=== PATIENT | female | born 1965 | race Caucasian/White ===

== ENCOUNTER 2017-03-15 08:00 | Inpatient (IN) | payer BC ==
--- NOTE | ~2017-03-15 | HP ---
Unit #: [id number] #: [id number] Patient: KELLI JONES [id number] [place] [address] [id number] MR#: [id number] NAME: KELLI JONES. ROOM: [facility] Age: 51 Sex: F Admission Date: 03/15/2017 : 1965 Attending Physician: Ramakrishna Merida M.D. Admitting Physician: Ramakrishna Meirda M.D. Primary Care Physician: Generic Doctor Not In System HISTORY AND PHYSICAL HISTORY OF PRESENT ILLNESS The patient is a 51-year-old female admitted to [facility] on 03/15/2017 for cocaine abuse and suicidal ideations. PAST MEDICAL HISTORY 1. Hypertension. 2. Hypothyroidism. 3. Type II diabetes. 4. Cocaine abuse. 5. Nicotine dependence. PAST SURGICAL HISTORY Hysterectomy. 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 She smokes one pack of cigarettes daily and uses two to three grams of cocaine per day. FAMILY MEDICAL HISTORY Noncontributory. ALLERGIES Sulfa. CURRENT MEDICATIONS 1. BuSpar 2. Klonopin 3. Tramadol 4. Paxil 5. Gabapentin 6. Klor-Con 7. Maxzide 8. Levothyroxine 9. Metformin 10. Pravastatin 11. Pro-Air REVIEW OF SYSTEMS CONSTITUTIONAL: No fever or chills. HEENT: Denies any sore throat, ear pain or runny nose. CARDIOVASCULAR: Denies chest pain, irregular heart rhythm or palpitations. CHEST: Denies shortness of breath or cough. No hemoptysis. GASTROINTESTINAL: Denies nausea, vomiting, diarrhea or chronic Unit #: [id number] #: [id number] Patient: KELLI JONES constipation. ENDOCRINE: Denies history of increased thirst or urination. No recent significant weight loss or gain. GENITOURINARY: Denies dysuria, frequency, or hematuria. SKIN: Denies any rashes. HEMATOLOGIC: Denies history of increased bleeding or bruising. MUSCULOSKELETAL: Denies any hot, swollen joints. No generalized muscle pain. NEUROLOGIC: Denies problems with vision or speech. No frequent, severe headaches. No numbness, tingling or weakness in any extremities. Denies loss of bladder or bowel control. PHYSICAL EXAM GENERAL: She is awake, alert and oriented in no acute distress. VITAL SIGNS: Temperature 97.7, heart rate 92, respiration 18, blood pressure 116/68. HEIGHT: 5'6". WEIGHT: 130 pounds. SKIN: Warm and dry without rash or lesion. HEENT: Normocephalic. TMs not viewed. Oral and nasal passages clear. Conjunctivae clear. PERRLA. EOMs intact. NECK: Supple without lymphadenopathy or thyromegaly. HEART: Regular rate and rhythm without murmur. LUNGS: Clear. ABDOMEN: Soft, nontender. : Not done. EXTREMITIES: No evidence of cyanosis, clubbing or edema. Moves all without focal deficit. NEUROLOGICAL: Grossly within normal limits. Cranial Nerves: II: Visual reyes are intact. III, IV AND : Extraocular movements are intact. Pupils are equal, round and reactive to light. V: Facial sensation is grossly normal. VII: Facial movements and expression are normal. VIII: Auditory acuity grossly intact. IX, X: Uvula is midline. Phonation is normal. XI: Patient shrugs shoulders and turns head normally. XII: Tongue protrudes in the midline. Sensory and Motor Function: Sensory and motor sensation is grossly normal. Motor: moves all extremities well. IMPRESSION 1. Psychiatric admission. 2. Cocaine abuse. 3. Hypertension. 4. Hypothyroidism. 5. Diabetes. 6. Nicotine dependence. RECOMMENDATIONS Psychiatric per psychiatrist. MEDICAL: No contraindication to participate in facility activities. MEDICAL PROGNOSIS Fair. MEDICAL CONDITION Stable. Unit #: [id number] #: [id number] Patient: KELLI JONES Dictated by... Sarthak Alan/naresh TD: 03/18/2017 03:51 JOB #: [id number] HISTORY AND PHYSICAL Page 1 of 1 X CHERYL MARTINEZ APRN HISTORY AND PHYSICAL
--- NOTE | ~2017-03-15 | DS ---
Unit #: [id number] #: [id number] Patient: KELLI JONES [id number] [facility] [address] [place] [address] [id number] MR#: [id number] NAME: KELLI JONES. ROOM: 75 Age: 51 Sex: F Admission Date: 03/15/2017 : 1965 Discharge Date: 03/18/2017 Attending Physician: Ramakrishna Merida M.D. Primary Care Physician: Generic Doctor Not In System DISCHARGE SUMMARY REASON FOR ADMISSION The patient is a 51-year-old, , white female, admitted with recurrence of depressed mood and cocaine use. HOSPITAL COURSE The patient was admitted to the [facility] unit and placed on suicide precautions. She was restarted on Paxil 20 mg daily and trazodone 100 mg at h.s. was added as well as BuSpar 10 mg b.i.d. The patient participated actively within therapeutic milieu and was much brighter when seen by this physician on 03/17/2017. On 03/18/2017, she sustained progress and requested discharge, and it was so ordered. FINAL DIAGNOSES Cocaine use disorder; dysthymic disorder; hypertension; diabetes mellitus; dyslipidemia; hypothyroidism; chronic obstructive pulmonary disease; chronic pain. DISPOSITION ON DISCHARGE The patient discharged on the following medications: Klor-Con 20 mEq q.a.m. for hypokalemia, Maxzide 25 mg one tablet once daily for hypertension, Synthroid 0.112 mg daily for hypothyroidism, Glucophage XR b.i.d. before meals for diabetic management, Lipitor 10 mg at bedtime for dyslipidemia, Proventil HFA 2 puffs q.4 hours p.r.n. shortness of air, BuSpar 10 mg b.i.d. for anxiety, Ultram dose unknown 1 to 2 tablets t.i.d. p.r.n. pain, Desyrel 100 mg at h.s. p.r.n. insomnia, and Paxil 20 mg daily for depression. DISCHARGE INSTRUCTIONS No dietary or physical restrictions were placed upon the patient at the time of discharge. FOLLOWUP Follow up through the auspices of community mental health resources in the [place], [place] area. PROGNOSIS The patient's prognosis is considered fair. Dictated by... Ramakrishna Merida M.D. Unit #: [id number] #: [id number] Patient: KELLI JONES Leelee STRANGE/laurent TD: 03/18/2017 15:52 JOB #: [id number] DISCHARGE SUMMARY Page 1 of 1 X Ramakrishna Merida MD X DISCHARGE SUMMARY
--- NOTE | ~2017-03-15 | PN ---
Unit #: [id number] #: [id number] Patient: KELLI JONES [id number] [facility] [address] [place] [address] [id number] I MR#: [id number] NAME: KELLI JONES. ROOM: [facility] Age: 51 Sex: F Admission Date: 03/15/2017 : 1965 Attending Physician: Ramakrishna Merida M.D. Admitting Physician: Ramakrishna Merida M.D. Primary Care Physician: Surya Doctor Not In System [facility] PROGRESS NOTES DATE 03/17/2017 DISCUSSION The patient appears significantly brighter today. She is expressing interest in going to [facility]" and could be ready for discharge as early as tomorrow. Dictated by... Ramakrishna Merida M.D. CB/naresh TD: 03/18/2017 02:49 JOB #: [id number] [facility] PROGRESS NOTES Page 1 of 1 X Ramakrishna Merida MD X PROGRESS NOTE
--- NOTE | ~2017-03-15 | PA ---
Unit #: [id number] #: [id number] Patient: KELLI JONES [id number] [place] [address] [id number] I MR#: [id number] NAME: KELLI JONES. ROOM: 75 Age: 51 Sex: F Admission Date: 03/15/2017 : 1965 Date of Assessment: 03/16/2017 Attending Physician: Ramakrishna Merida M.D. Admitting Physician: Ramakrishna Merida M.D. Primary Care Physician: Generic Doctor Not In System PSYCHIATRIC ASSESSMENT IDENTIFYING INFORMATION The patient is a 51-year-old white female admitted in transfer from [facility] where she had presented voicing positive suicidal ideation, it was a passive type related to a recent relapse of cocaine use. INFORMANT(S) Patient. RELIABILITY Fair. CHIEF COMPLAINT None given. HISTORY OF PRESENT ILLNESS The patient is a 51-year-old white female admitted with a history of crack cocaine abuse. The patient reports that because of her ongoing abuse she was recently expelled from the domicile she had shared with her mother. The patient reports she is presently homeless. She has been in treatment at [facility] in the past and did maintain sobriety for an 8 year period of time at one point but relapsed approximately 4 years ago. The patient reports she using 2 to 3 grams of cocaine daily. She is expressing passive suicidal ideation related to her current homeless situation as well as her ongoing abuse of psychoactive substances. She is prescribed paroxetine per her report but has not recently been on that medication. PAST PSYCHIATRIC HISTORY As noted previously, the patient has been treated in the past for cocaine abuse. She also was prescribed paroxetine for depression. FAMILY HISTORY Noncontributory. SOCIAL HISTORY The patient is presently homeless. She reports substance use as noted previously. 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 She is a smoker. MEDICAL HISTORY Significant for a history of diabetes mellitus and hypertension, asthma and hypokalemia. MEDICATION HISTORY Unit #: [id number] #: [id number] Patient: KELLI JONES 1. ProAir. 2. Pravastatin. 3. Metformin. 4. Levothyroxine. 5. Maxzide. 6. HCTZ. 7. Klor-Con. ALLERGIES Sulfa. MENTAL STATUS EXAM At this time reveals the patient to a thin, disheveled white female appearing older than her stated age. She is in no apparent physical distress at the time of examination. She is awake, alert, oriented in all spheres. Her mood is dysphoric. Her affect blunted. Speech is generally relevant or coherent. There are no gross deficits in memory or cognition noted. Intelligence is judged to be in the average range based on fund of knowledge. The patient is cooperative throughout the interview. She is currently endorsing positive suicidal ideation without specific plan. She denies homicidal ideation. She denies any psychotic symptoms. Her judgement and insight appear to be intact. ASSETS AND LIABILITIES Patient's assets, motivation for change. Liabilities, lack of resources. ADMITTING DIAGNOSES 1. Cocaine use disorder. 2. Dysthymic disorder. 3. Diabetes mellitus. 4. Hypokalemia. 5. Hypothyroidism. 6. Hypertension. 7. Dyslipidemia. PSYCHIATRIC PLAN/TREATMENT GOALS The patient remains hospitalized for safety and stabilization. We will restart previously prescribed medications. The patient will participate in appropriate gerard and milieu activities. DISCHARGE PLANNING Follow up to take place through the auspices of community mental health resources in the [facility]. I will ask the patient's child protective services social worker to see her regarding post discharge treatment options. ESTIMATED LENGTH OF STAY Five days. Dictated by... Ramakrishna Merida M.D. ALEXANDR/vanna TD: 03/16/2017 13:14 JOB #: [id number] Unit #: [id number] #: [id number] Patient: KELLI JONES PSYCHIATRIC ASSESSMENT Page 1 of 1 X Ramakrishna Merida MD PSYCHIATRIC ASSESSMENT
== END 2017-03-18 15:20 | DRG 897 ==
LOC: P1E 14:47
DX: F14.10 Cocaine abuse, uncomplicated (principal); R45.851 Suicidal ideations; F34.1 Dysthymic disorder; E11.9 Type 2 diabetes mellitus without complications; E87.6 Hypokalemia; E03.9 Hypothyroidism, unspecified; I10 Essential (primary) hypertension; E78.5 Hyperlipidemia, unspecified; Z88.2 Allergy status to sulfonamides; F17.210 Nicotine dependence, cigarettes, uncomplicated; Z90.710 Acquired absence of both cervix and uterus; Z79.84 Long term (current) use of oral hypoglycemic drugs; J44.9 Chronic obstructive pulmonary disease, unspecified; G89.29 Other chronic pain